=== PATIENT | female | born 1980 | race Two or more races ===

== ENCOUNTER 2017-10-30 10:43 | Outpatient (CLI) | payer BC | END 2017-10-30 23:59 | disposition home or self-care (01) | LOC: US 10:43 | PROVIDERS: ATTEND Internal Medicine Hematology & Oncology | DX: E05.90 Thyrotoxicosis, unspecified without thyrotoxic crisis or storm (principal) | CPT/HCPCS: 76536-TC ==

== ENCOUNTER 2022-02-02 22:15 | Emergency (ER) | payer BC ==
[~2022-02-02] VITALS: Ht 170.2 cm; Wt 63.5 kg
[2022-02-02 22:38] VITALS: BP 135/92
--- NOTE | 2022-02-02 23:27 | NUR ---
Patient discharged to home in stable condition. Written and verbal after care instructions given. Patient verbalizes understanding of instruction.
[2022-02-02] MEDS ORDERED: TDAP [DIPH/PERTUSSIS/TET] 0.5 ML VIAL IM ONE (23:30)
== END 2022-02-02 23:28 | disposition home or self-care (01) ==
LOC: ER 22:15
DX: S61.012A Laceration without foreign body of left thumb without damage to nail, initial encounter (principal); Z88.2 Allergy status to sulfonamides; Z88.1 Allergy status to other antibiotic agents; W26.8XXA Contact with other sharp object(s), not elsewhere classified, initial encounter; Y93.89 Activity, other specified; Y92.89 Other specified places as the place of occurrence of the external cause; Y99.8 Other external cause status